=== PATIENT | female | born 2000 | race African-American/Black ===

== ENCOUNTER 2021-06-28 08:13 | Outpatient (REF) | payer OTHER, SELFPAY ==
[2021-06-28 16:08] LABS: CT PCR NOT DETECTED (Not Detect.); NG PCR NOT DETECTED (Not Detect.)
[2021-06-29 09:10] LABS: BV Int Neg Control Negative (Negative); BV Int Pos Control Positive (Positive)
== END 2021-06-28 08:14 | disposition home or self-care (01) ==
LOC: HO.LAB 08:13
PROVIDERS: Visit Provider Obstetrics & Gynecology
DX: Z01.411 Encounter for gynecological examination (general) (routine) with abnormal findings (principal); N93.9 Abnormal uterine and vaginal bleeding, unspecified; N76.0 Acute vaginitis; B96.89 Other specified bacterial agents as the cause of diseases classified elsewhere
CPT/HCPCS: 87480; 87491; 87510; 87591; 87660; 99202

== ENCOUNTER 2021-08-16 15:14 | Outpatient (REF) | payer OTHER, SELFPAY ==
--- NOTE | ~2021-08-16 | US_ITS ---
EXAMINATION: US PELVIS CLINICAL INFORMATION: Abnormal uterine and vaginal bleeding COMPARISON: None TECHNIQUE: Ultrasound of the pelvis is performed using both transabdominal and transvaginal transducers along with Doppler. Transvaginal imaging is performed due to inadequate visualization transabdominally. FINDINGS: The uterus is anteverted and measures 7.8 x 3.2 x 3.7 cm in dimension. No focal uterine lesion is seen. Endometrial thickness is normal measuring 0.6 cm. The cervix is normal appearing. The ovaries are normal in size. The right ovary measures 3.1 x 1.8 x 2.1 cm, volume 5.9 mL. The left ovary measures 2.8 x 2 x 2.6 cm, volume 7.6 mL. There are multiple small follicles or cysts seen peripherally in both ovaries with polycystic appearance. There is no fluid in the pelvis. US/US pelvic and transvaginal IMPRESSION: Normal size ovaries with polycystic appearance.
== END 2021-08-16 15:15 | disposition home or self-care (01) ==
LOC: HO.US 15:14
PROVIDERS: Visit Provider Obstetrics & Gynecology
DX: N93.9 Abnormal uterine and vaginal bleeding, unspecified (principal)
CPT/HCPCS: 76830; 76856

== ENCOUNTER → 2021-09-09 12:46 | Outpatient (BNVA) | payer OTHER, SELFPAY | PROVIDERS: Visit Provider Obstetrics & Gynecology | DX: N93.9 Abnormal uterine and vaginal bleeding, unspecified (principal) | CPT/HCPCS: Q3014 ==